=== PATIENT | female | born 1980 | race Asian ===

== ENCOUNTER 2020-04-16 10:14 | Emergency (ER) | payer MEDICAID ==
[~2020-04-16] VITALS: Ht 157.5 cm; Wt 107.9 kg
[~2020-04-16 10:14] MED LIST: CEPH-368 PO; CLIN300C8 PO; HYDR-3240 PO; OXYC-302 PO; SULF1TAB24 PO
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
--- NOTE | 2020-04-16 12:12 | NUR ---
PT. WAS GIVEN DISCHARGE INSTRUCTIONS AND A SCRIPT WITH UNDERSTANDING VERBALIZED ALONG WITH WILLINGNESS TO COMPLY. PT. WAS AMBULATORY TO THE DISCHARGE DESK.
[2020-04-16 12:13] VITALS: BP 152/100
== END 2020-04-16 12:15 | disposition home or self-care (01) ==
LOC: ED 10:52
DX: B34.9 Viral infection, unspecified (principal); Z20.828 Contact with and (suspected) exposure to other viral communicable diseases; R05 Cough; J02.9 Acute pharyngitis, unspecified; F17.200 Nicotine dependence, unspecified, uncomplicated
CPT/HCPCS: 36415; 71045; 87635; 99284